=== PATIENT | male | born 1985 | race Caucasian/White ===

== ENCOUNTER 2019-03-16 15:43 | Emergency (ER) | payer OTHER ==
[~2019-03-16] VITALS: Ht 180.3 cm; Wt 79.4 kg
[~2019-03-16 15:43] MED LIST: ALBU90OI; DIAZ5 PO; HYDACE5 PO; OXYACE5T PO; TRIA15CR3 TOP
[2019-03-16] MEDS ORDERED: METH5 PO (16:00)
[2019-03-16] MEDS ORDERED: PENVK500 PO (16:03)
== END 2019-03-16 16:10 | disposition home or self-care (01) ==
LOC: ER 15:43
DX: K02.9 Dental caries, unspecified (principal); K08.89 Other specified disorders of teeth and supporting structures; F17.210 Nicotine dependence, cigarettes, uncomplicated; Z88.1 Allergy status to other antibiotic agents
CPT/HCPCS: 99282